=== PATIENT | female | born 1940 | race African-American/Black ===

== ENCOUNTER → 2017-01-19 | Outpatient (CLI) | payer OTHER ==
--- NOTE | ~2017-01-19 | BD1 ---
[facility] A Service of [facility] & [facility] RADIOLOGY TEXT RESULTS PATIENT: GIANCARLO MURRAY LOCATION: [facility] : 36 UNIT #: [id number] AGE: [address]: Marilin Cameron MD SEX: F ORDER DR: [id number] [facility] [address] [place], [place] [address] [id number] O MR#: [id number] Acc #: [id number] NAME: GIANCARLO MURRAY : 1940 SEX: F STUDY DATE/TIME: 01/19/2017 13:29 UNIT: [facility] ROOM: STUDY DESCRIPTION: BD Dexa Bone Dens 1+ Site Attending Physician: Marilin Cameron M.D. Ordering Physician: Marilin Cameron M.D. Primary Care Physician: Marilin Cameron M.D. MEDICAL IMAGING REPORT This report is preliminary unless electronic signature is present EXAM DXA scan, 01/19/2017 HISTORY Status post menopause with no hormone replacement therapy. Osteopenia. Hysterectomy with removal of both ovaries. Diabetes. Smoking history. FINDINGS Bone mineral density in the lumbar spine from L1 through L4 is 0.73 g/cm2 which is 3.8 standard deviations below the mean when compared to the young adult reference population which is characteristic of osteoporosis. This is 1 standard deviation below the mean when compared to the age-matched population. Bone mineral density in the left femoral neck was 0.768 g/cm2 which is 1.3 standard deviations below the mean when compared to the young adult reference population which is characteristic of osteopenia. This is 0.4 standard deviations above the mean when compared to the age-matched population. IMPRESSION Bone mineral density in the lumbar spine characteristic of osteoporosis and within the left hip characteristic of osteopenia. Dictated by... Hang Flores M.D. THIS IS AN ELECTRONICALLY VERIFIED REPORT Hang Flores M.D. at 01/20/2017 2:12 PM RYAN/elena TD: 01/20/2017 05:05 JOB #: [id number] [facility] A Service of [facility] & [facility] RADIOLOGY TEXT RESULTS PATIENT: GIANCARLO MURRAY LOCATION: [facility] : 36 UNIT #: [id number] AGE: [address]: Marilin Cameron MD SEX: F ORDER DR: MEDICAL IMAGING REPORT Page 1 of 1 COPY
== END | disposition home or self-care (01) ==
LOC: CWCC 13:00
DX: Z13.820 Encounter for screening for osteoporosis (principal); Z78.0 Asymptomatic menopausal state; M81.0 Age-related osteoporosis without current pathological fracture; M85.88 Other specified disorders of bone density and structure, other site
CPT/HCPCS: 77080